=== PATIENT | female | born 1985 | race Two or more races ===

== ENCOUNTER 2018-11-05 10:45 | Emergency (ER) | payer MEDICAID, OTHER ==
[~2018-11-05] VITALS: Ht 170.2 cm; Wt 68.0 kg
--- NOTE | 2018-11-05 11:06 | NUR ---
PT HAVING ABDOMINAL PAIN, ESPECIALLY WHEN URINATING. PAIN DESCRIBED 7/10, SHOOTING/BURNING. SITTING UP IS PAINFUL. HAD SAME EXPERIENCE 4 YEARS AGO DX RUPTURED OVARIAN CYST. TOOK 400MG IBUPROFEN 35 MIN AGO. PT AOX4, AMB, VSS, RR EVEN AND UNLABORED. NO ACUTE DISTRESS NOTED. ON MONITOR, MADE COMFORTABLE, AND READY FOR EVAL.
--- NOTE | 2018-11-05 11:25 | NUR ---
DANCER OR CHOREOGRAPHER AT BEDSIDE
[2018-11-05 11:26] LABS: APPEARANCE,URINE Slightly Cloudy (CLEAR); BILIRUBIN,URINE Negative (NEGATIVE); BLOOD, URINE Negative Ery/uL (NEGATIVE); COLOR,URINE Yellow (YELLOW); KETONES,URINE Negative (NEGATIVE); LEUKOCYTE ESTERASE ,URINE Trace (NEGATIVE); NITRITE, URINE Negative (NEGATIVE); PH,URINE 6.5 (5.0-8.0); PROTEIN,URINE Negative (NEGATIVE); UGLUCOSE Negative (NEGATIVE); UROBILINOGEN,URINE 0.2 EU/dL (0.2)
[2018-11-05 11:30] LABS: BACTERIA,URINE Few /HPF (None Seen); RBC,URINE 0-2 /HPF (0-2); SQUAMOUS EPITHELIAL CELL,UR Few /HPF (None Seen)
--- NOTE | 2018-11-05 11:50 | NUR ---
ULTRASOUND COMPLETE. PT KURTIS WELL.
--- NOTE | 2018-11-05 12:15 | NUR ---
Patient discharged to home in stable condition. Written and verbal after care instructions given. Patient verbalizes understanding of instruction.
[2018-11-05 12:16] VITALS: BP 132/72
== END 2018-11-05 12:16 | disposition home or self-care (01) ==
LOC: ER 10:45
DX: N83.02 Follicular cyst of left ovary (principal)
CPT/HCPCS: 76856-TC; 81000-TC; 84703-TC

== ENCOUNTER 2020-01-18 09:05 | Emergency (ER) | payer MEDICAID, OTHER ==
[~2020-01-18] VITALS: Ht 170.2 cm; Wt 72.6 kg
[2020-01-18 09:15] VITALS: BP 128/90
--- NOTE | 2020-01-18 09:20 | NUR ---
COVID SPECIMEN COLLECTED AND SENT TO LAB.
--- NOTE | 2020-01-18 09:27 | NUR ---
Patient discharged to home in stable condition. Written and verbal after care instructions given. Patient verbalizes understanding of instruction.
== END 2020-01-18 09:28 | disposition home or self-care (01) ==
LOC: ER 09:05
DX: Z20.828 Contact with and (suspected) exposure to other viral communicable diseases (principal)
CPT/HCPCS: 99283; C9803; U0003